=== PATIENT | female | born 1955 | race Caucasian/White ===

== ENCOUNTER 2016-08-10 12:40 | Emergency (ER) | payer OTHER ==
[2016-08-10 13:15] VITALS: BP 120/70
--- NOTE | 2016-08-10 14:18 | EDM.PDOC ---
[id number] WORKERS COMP TRIPPED CUT HEAD Time Seen by Provider: 08/10/16 14:17 Source: Reports: Patient, Old records, RN, RN notes reviewed History Limitations: Reports: No limitations - History of Present Illness INITIAL COMMENTS - FREE TEXT/NARRATIVE: C/O cut to Rt forehead sustained from a fall at work. Denies LOC or N/V. Denies any other injury. Symptom Onset Date: 08/10/16 Occurred When: just prior to arrival Occurred Where: work Method of Injury: fall Pain/Injury Location: Reports: face Consciousness: Reports: no loss of consciousness, remembers incident Associated Symptoms: Reports: no other symptoms Allergies/ADRs: Allergies No Known Allergies Allergy (Verified 10/27/15 10:17) Home Medications: Ambulatory Orders Estrogens, Conjugated [Premarin Vaginal Crm] 1 mg VAG ASDIRECTED 08/10/16 [ Confirmed 08/10/16] Sertraline [Zoloft] 50 mg PO BEDTIME 08/10/16 [Confirmed 08/10/16] Past Medical History - Past Health History Medical/Surgical History: Denies Medical/Surgical History HEENT History: Reports: Impaired vision Other HEENT History: wears glasses Cardiovascular History: Reports: None Respiratory History: Reports: None Gastrointestinal History: Reports: None Genitourinary History: Reports: None 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 Musculoskeletal History: Reports: Arthritis Neurological History: Reports: None Psychiatric History: Reports: Depression Endocrine/Metabolic History: Reports: None Hematologic History: Reports: None Immunologic History: Reports: None Oncologic (Cancer) History: Reports: None Dermatologic History: Reports: None - Infectious Disease History Infectious Disease History: Reports: C-difficile, Measles, Mumps - Past Surgical History Head Surgeries/Procedures: Reports: None Female Surgical History: Reports: section Social & Family History - Family History Family Medical History: Noncontributory - Tobacco Use Smoking Status *Q: Current Every Day Smoker Years of Tobacco use: 46 Packs/Tins Daily: 1 Used Tobacco, but Quit: No Second Hand Smoke Exposure: No - Caffeine Use Caffeine Use: Reports: Coffee - Alcohol Use Days Per Week of Alcohol Use: 0 - Recreational Drug Use Recreational Drug Use: No - Living Situation & Occupation Occupation: employed Review of Systems - Review of Systems Review Of Systems: ROS reveals no pertinent complaints other than HPI. ED EXAM, TRAUMA (MAJOR/MULTI) - Physical Exam Exam: See Below Exam Limited By: No limitations General Appearance: alert, WD/WN, no apparent distress Head: normocephalic, facial lacerations (3.0cm linear lac. 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, no motor/sensory deficits, alert, normal mood/affect, oriented x 3 - [place] Coma Score Best Eye Response ([place]): (4) open spontaneously Best Verbal Response ([place]): (5) oriented Best Motor Response ([place]): (6) obeys commands [place] Total: 15 ED TRAUMA PROCEDURES - Laceration/Wound Repair Right Lateral Forehead Lac/wound length in cm: 3 Appearance: subcutaneous, linear, clean Distal NVT: neuro & vascular intact Anesthetic type: local Local anesthesia - Lidocaine (Xylocaine): 1% plain Local anesthetic volume: other (10cc) Skin prep: chlorhexidine (hibiciens), saline Saline irrigation (cc's): 1,000 Exploration/Debridement/Repair: wound explored, in a bloodless field, explored to base, minimal debridement, moderate debridement Closed with: sutures Suture size: 4-0 # of sutures: 8 Suture type: nylon, Running Drain placement: No Sterile dressing applied: nurse Tetanus status addressed: Yes Complications: No Course - Vital Signs Last Recorded V/S: Last Vital Signs Temp 37.1 C 08/10/16 13:10 Pulse 70 08/10/16 13:10 Resp 14 08/10/16 13:10 BP 120/70 08/10/16 13:10 Pulse Ox 100 08/10/16 13:10 - Orders/Labs/Meds Meds: Medications Discontinued Medications Generic Name Dose Route Start Last Admin Trade Name Freq PRN Reason Stop Dose Admin Bacitracin 1 dose 08/10/16 14:22 08/10/16 14:34 Bacitracin Oint 1 Gm TOP 08/10/16 14:23 1 dose ONETIME ONE Administration Lidocaine HCl 30 ml 08/10/16 14:19 Xylocaine-Mpf 1% .ROUTE 08/10/16 14:20 .STK-MED ONE Lidocaine HCl 30 ml 08/10/16 14:22 08/10/16 14:25 Xylocaine-Mpf 1% INJECT 08/10/16 14:23 10 ml ONETIME ONE Administration Lidocaine HCl Confirm 08/10/16 14:21 08/10/16 14:26 Xylocaine-Mpf 1% Administered 08/10/16 14:22 Not Given Dose 30 ml .ROUTE .STK-MED ONE Departure - Departure Time of Disposition: 14:37 Disposition: Home, Self-Care 01 Condition: good Clinical Impression: Work related injury Forehead laceration Qualifiers: Encounter type: initial encounter Qualified Code(s): S01.81XA - Laceration without foreign body of other part of head, initial encounter Instructions: Laceration Care, Adult Referrals: January Allen MD [Primary Care Provider] - Forms: ED Department Discharge Additional Instructions: Follow up in clinic in 7 to 10 days for suture removal.
[2016-08-10] MEDS ORDERED: Lidocaine 1% 30 ML SDV ONE ×2 (14:19→14:21)
[2016-08-10] MEDS ORDERED: Lidocaine 1% 30 ML SDV INJECT ONE (14:22)
[2016-08-10] MEDS ORDERED: Bacitracin Oint 1 GM U/D Packet TOP ONE (14:22)
== END 2016-08-10 14:53 | disposition home or self-care (01) ==
LOC: DL.ED 12:40
DX: S01.81XA Laceration without foreign body of other part of head, initial encounter (principal); M19.90 Unspecified osteoarthritis, unspecified site; F32.9 Major depressive disorder, single episode, unspecified; F17.210 Nicotine dependence, cigarettes, uncomplicated; W19.XXXA Unspecified fall, initial encounter; Y99.0 Civilian activity done for income or pay
CPT/HCPCS: 12013; 99283

== ENCOUNTER 2016-09-05 10:23 | Emergency (ER) | payer OTHER ==
[2016-09-05] MEDS ORDERED: Lidocaine 1% 30 ML SDV INJECT ONE (10:42)
[2016-09-05 11:53] VITALS: BP 122/61
== END 2016-09-05 11:55 | disposition left against medical advice (07) ==
LOC: DL.ED 10:23
DX: Z53.20 Procedure and treatment not carried out because of patient's decision for unspecified reasons (principal)
CPT/HCPCS: 99283